=== PATIENT | female | born 1955 | race Caucasian/White ===

== ENCOUNTER → 2023-12-20 13:08 | Outpatient (REF) | payer MEDICARE, OTHER, SELFPAY | LOC: HWRAD 13:08 | PROVIDERS: ATTENDING PHYSICIAN Family Medicine | DX: M25.551 Pain in right hip (principal) | CPT/HCPCS: 73502 ==

== ENCOUNTER → 2024-01-11 06:32 | Outpatient (REF) | payer MEDICARE, OTHER, SELFPAY | LOC: MRI 3T 06:32 | PROVIDERS: ATTENDING PHYSICIAN Physical Medicine & Rehabilitation; FAMILY PHYSICIAN Family Medicine | DX: M54.16 Radiculopathy, lumbar region (principal) | CPT/HCPCS: 72148 ==

== ENCOUNTER → 2024-01-16 10:47 | Outpatient (REF) | payer MEDICARE, OTHER, SELFPAY | LOC: HWCARD 10:47 | PROVIDERS: ATTENDING PHYSICIAN Physical Medicine & Rehabilitation; FAMILY PHYSICIAN Family Medicine | DX: Z01.818 Encounter for other preprocedural examination (principal) | CPT/HCPCS: 93005 ==

== ENCOUNTER → 2024-03-08 11:17 | Outpatient (REF) | payer MEDICARE, OTHER, SELFPAY | LOC: HWRAD 11:17 | PROVIDERS: ATTENDING PHYSICIAN Family Medicine | DX: Z78.0 Asymptomatic menopausal state (principal); Z12.31 Encounter for screening mammogram for malignant neoplasm of breast | CPT/HCPCS: 77063; 77067; 77080 ==

== ENCOUNTER 2025-09-16 06:14 | Day surgery (SDC) | payer MEDICARE, OTHER, SELFPAY ==
--- NOTE | 2025-08-28 14:56 | CM ---
Patient is for procedure Right TKA, 09/16 employment evaluator/case manager reached out and left a message requesting a return call.
Plan Will follow up with patient.
--- NOTE | 2025-08-29 11:12 | CM ---
Demographics: confirmed
Living situation: lives with
Support Person Post Operatively:
History of
VN: no
SNF: No
Outpatient: [facility] 09/19 appointment made
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
PCP: active
Pharmacy: [facility]
Post Operative Discharge Plan: [facility], [facility] and then transition to outpatient PT
--- NOTE | 2025-09-02 09:40 | VNURNOTE ---
Addendum entered by Lurdes Israel RN 09/02/25 15:02:
Rec'ed call back from patient.
She is scheduled for an elective R TKA on 09/16 - she is a same day patient with Dr Ledbetter. Spoke with patient prior to surgery. Introduced role of [facility] Liaison. Patient reports that she lives with her spouse in a MULTI story home.
There is a powder room on the entry level buyer. She will obtain her rolling walker at her Pre op visit tomorrow.
Discussed SDS joint protocol and post surgical plans.
Reviewed that she will have VN services initially and will then start outpatient PT.
Patient selects [facility] for his home care needs and will go to outpt PT on 09/19.
Patient is in agreement with plan and states that hre spouse will be home with him. Advised to bring RW with her day of surgery. Referral accepted in [facility].
Plan: [facility] per [facility] joint protocol 09/16 then outpt PT on 09/19
Original Note:
[facility] liaison called pt to review [facility] joint protocol: nursing and PT visits at home. No answer, left message with contact info. [facility] Referral placed in [facility].
[2025-09-03 14:37] LABS: Hematocrit 39.9 % (37.0-47.0); Hemoglobin 12.8 g/dL (12.0-16.0); Mean Corp Hgb Conc. 32.1 g/dL (33.0-37.0); Mean Corpuscular Volume 95.9 fL (81.0-99.0); Platelet Count 203 10^3/uL (130-400); Red Cell Dist. Width 12.9 % (11.5-14.5)
[2025-09-03 15:19] LABS: ALT (SGPT) 16 U/L (0-35); AST (SGOT) 17 U/L (14-36); Albumin 4.3 g/dl (3.5-5.0); Alkaline Phosphatase 53 U/L (38-126); Blood Urea Nitrogen 16 mg/dl (7-17); Calcium 9.7 mg/dl (8.4-10.2); Carbon Dioxide 29 mmol/L (22-30); Chloride 103 mmol/L (98-107); Glucose 80 mg/dl (70-99); Potassium 5.2 mmol/L (3.5-5.1); Sodium 137 mmol/L (135-145); Total Protein 6.7 g/dl (6.3-8.2); eGFR > 60.00
[2025-09-04 08:10] LABS: Glycohemoglobin (HgbA1c) 5.7 % (4.0-5.9)
[2025-09-04 14:39] VITALS: BMI 33.4
[2025-09-04 14:40] VITALS: BMI 33.4
--- NOTE | 2025-09-04 14:57 | CM ---
CM called in Eliquis coupon to [facility] pharmacy.
[2025-09-16] VITALS (16 sets, daily range): BP systolic 78–164; BP diastolic 46–91; BMI 33.4
[2025-09-16] MEDS: TYLENOL 650 MG PO (09:22)
--- NOTE | 2025-09-16 09:51 | W.DS.TRANS ---
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
-
Discharge Instructions:
Sleep Apnea Risk Low
Discharge Diagnosis/Procedures R knee OA s/p R TKA w/ Dr Ledbetter 09/16/25
Diet Regular
Additional Diets Adequate hydration, minimize opioids, and wear
TEDs stockings to prevent low blood pressure/
dizziness.
Activity As tolerated,With Walker
Driving Restrictions Not until seen by your Dr
Bathing Restrictions OK to Shower
Other Services PT,VN
Wound Care TAKE BOWEL MEDS DIRECTED UNTIL HAVING REGULAR
BMs TO AVOID OBSTRUCTION (regardless of oral
intake).
Instructions:
Stand-Alone Forms: SDS Total Hip and Knee D/C
Changes to Home Medications: Yes
Discharge Medications:
DC Medications w/original date entered in [employer]
atorvastatin 20 mg tablet 20 mg PO DAILY 08/30/25
clopidogrel 75 mg tablet 75 mg PO DAILY 08/30/25
Held on 09/16/25. Instructions: Resume on 09/19/25.
multivitamin 1 tab PO DAILY 08/30/25
Held on 09/16/25. Instructions: Resume on 10/29/25.
cefadroxil 500 mg capsule 500 mg PO BID #14 caps 09/03/25
dexamethasone 4 mg tablet 4 mg PO BID Anti-inflammatory #7 tabs 09/03/25
famotidine 20 mg tablet (Pepcid) 20 mg PO HS #30 tabs 09/03/25
gabapentin 300 mg capsule 300 mg PO HS neuropathic pain/sleep #10 caps 09/03/25
mupirocin 2 % topical ointment 1 applic intranasal BID #1 tube 09/03/25
ondansetron HCl 4 mg tablet 4 mg PO Q6H PRN nausea and vomiting #30 tabs 09/03/25
oxycodone 5 mg tablet 5 - 10 mg (1 - 2 x 5 mg) PO Q6H PRN moderate-severe pain #30 tabs 09/03/25
apixaban 2.5 mg tablet (Eliquis) 2.5 mg PO BID Blood clot prevention/tx #60 tabs 09/04/25
Saccharomyces boulardii 250 mg capsule (Florastor) 250 mg PO BID #1 cap 09/16/25
acetaminophen 325 mg tablet (Tylenol) 650 mg (2 x 325 mg) PO QID #1 tab 09/16/25
docusate sodium 100 mg capsule (Colace) 100 mg PO BID stool softner #1 cap 09/16/25
lisinopril 10 mg tablet 10 mg PO DAILY #0 tabs 09/16/25
magnesium hydroxide 400 mg/5 mL oral suspension (Milk of Magnesia) 30 ml PO HS PRN constipation #1 mL 09/16/25
sennosides 8.6 mg tablet (Senokot) 17.2 mg (2 x 8.6 mg) PO BID laxative #2 tabs 09/16/25
Home Medication Changes
cefadroxil 500 mg capsule 500 mg PO BID #14 caps 09/03/25
dexamethasone 4 mg tablet 4 mg PO BID Anti-inflammatory #7 tabs 09/03/25
famotidine 20 mg tablet (Pepcid) 20 mg PO HS #30 tabs 09/03/25
gabapentin 300 mg capsule 300 mg PO HS neuropathic pain/sleep #10 caps 09/03/25
mupirocin 2 % topical ointment 1 applic intranasal BID #1 tube 09/03/25
ondansetron HCl 4 mg tablet 4 mg PO Q6H PRN nausea and vomiting #30 tabs 09/03/25
oxycodone 5 mg tablet 5 - 10 mg (1 - 2 x 5 mg) PO Q6H PRN moderate-severe pain #30 tabs 09/03/25
apixaban 2.5 mg tablet (Eliquis) 2.5 mg PO BID Blood clot prevention/tx #60 tabs 09/04/25
Saccharomyces boulardii 250 mg capsule (Florastor) 250 mg PO BID #1 cap 09/16/25
acetaminophen 325 mg tablet (Tylenol) 650 mg (2 x 325 mg) PO QID #1 tab 09/16/25
docusate sodium 100 mg capsule (Colace) 100 mg PO BID stool softner #1 cap 09/16/25
lisinopril 10 mg tablet 10 mg PO DAILY #0 tabs 09/16/25
magnesium hydroxide 400 mg/5 mL oral suspension (Milk of Magnesia) 30 ml PO HS PRN constipation #1 mL 09/16/25
sennosides 8.6 mg tablet (Senokot) 17.2 mg (2 x 8.6 mg) PO BID laxative #2 tabs 09/16/25
Pending Results: No
[2025-09-16] MEDS: ANCEF 5 IV (15:02)
[2025-09-16] MEDS: TYLENOL 1000 MG PO (15:38)
[2025-09-16] MEDS: CYKLOKAPRON 650 MG PO (16:03)
[2025-09-16] MEDS: ROXICODONE 5 MG PO (16:03)
== END 2025-09-16 17:47 | disposition home health service (06) ==
LOC: SDS 06:14
PROVIDERS: ATTENDING PHYSICIAN Specialist; FAMILY PHYSICIAN Internal Medicine; OTHER PHYSICIAN Physician Assistant
DX: M17.11 Unilateral primary osteoarthritis, right knee (principal); E66.9 Obesity, unspecified; Z68.33 Body mass index [BMI] 33.0-33.9, adult; M51.369 Other intervertebral disc degeneration, lumbar region without mention of lumbar back pain or lower extremity pain; I67.1 Cerebral aneurysm, nonruptured; M41.9 Scoliosis, unspecified; M81.0 Age-related osteoporosis without current pathological fracture
CPT/HCPCS: 27447; C1776; C1713; 36415; 73560; 80053; 83036; 85027; 87070; 93005; 97163